=== PATIENT | male | born 1990 ===

== ENCOUNTER 2023-10-31 20:34 | Emergency (ER) | payer BC ==
[2023-10-31] MEDS: Acetaminophen/HYDROcodone 325-10 MG Tab PO ONE (21:41)
[2023-10-31] MEDS: Diazepam 2 MG Tab PO ONE (21:42)
[2023-10-31] MEDS: predniSONE 10 MG Tab PO ONE (21:42)
[2023-10-31 23:34] VITALS: BP 127/83; PULSE 83
== END 2023-10-31 22:48 | disposition home or self-care (01) ==
LOC: MW.ED 20:34
DX: M54.16 Radiculopathy, lumbar region (principal)
CPT/HCPCS: 99283; A9270

== ENCOUNTER → 2025-06-11 | Emergency (ER) | payer BC ==
[2025-06-11 11:22] VITALS: BP 127/82; PULSE 71
== END | disposition home or self-care (01) ==
LOC: MW.ED 10:53
DX: K64.9 Unspecified hemorrhoids (principal); F17.200 Nicotine dependence, unspecified, uncomplicated; Z79.899 Other long term (current) drug therapy
CPT/HCPCS: 99282